=== PATIENT | female | born 1965 | race Caucasian/White ===

== ENCOUNTER → 2020-06-15 | Outpatient (CLI) | payer BC, OTHER ==
[~2020-06-15] MED LIST: COVID-19 VACC, MRNA(MODERNA)/PF 100 MCG/0.5 ML VIAL IM ONE
== END | disposition home or self-care (01) ==
LOC: VACCPMC 08:00
DX: Z20.822 Contact with and (suspected) exposure to COVID-19 (principal)
CPT/HCPCS: 0011A; 91301

== ENCOUNTER → 2020-07-13 | Outpatient (CLI) | payer BC, OTHER | LOC: VACCPMC 12:34 | DX: Z20.822 Contact with and (suspected) exposure to COVID-19 (principal); Z23 Encounter for immunization | CPT/HCPCS: 91301 ==